=== PATIENT | male | born 1975 | race Caucasian/White ===

== ENCOUNTER 2016-07-17 12:42 | Emergency (ER) | payer MEDICARE, MEDICAID ==
--- NOTE | 2016-07-17 13:30 | EDM.PDOC ---
ED HPI Trauma - General Chief Complaint: Upper Extremity Injury/Pain Stated Complaint: FELL OFF HORSE Time Seen by Provider: 07/17/16 13:25 Source: Reports: Patient, RN notes reviewed History Limitations: Reports: No limitations - History of Present Illness INITIAL COMMENTS - FREE TEXT/NARRATIVE: 41-year-old gentleman presents to the emergency department today following a fall of his course, he landed on his buttocks and the outstretched left hand, he denies any head injury or loss of consciousness he is complaining of left wrist pain only Allergies/ADRs: Allergies No Known Allergies Allergy (Verified 07/17/16 13:07) Home Medications: Ambulatory Orders Albuterol [Ventolin HFA] 07/17/16 Amoxicillin/Potassium Clav [Amox-Clav 875-125 mg Tablet] 07/17/16 Aspirin 07/17/16 [Confirmed 07/17/16] Benztropine Mesylate 07/17/16 Budesonide/Formoterol [Symbicort 160-4.5 MCG] 07/17/16 Cetirizine [ZyrTEC] 07/17/16 Diclofenac Potassium [Cataflam] 07/17/16 Haloperidol [Haloperidol] 07/17/16 LORazepam [LORazepam] 07/17/16 Levothyroxine 07/17/16 Lovastatin [Mevacor] 07/17/16 Meclizine [Antivert] 07/17/16 Omeprazole 07/17/16 Prazosin HCl [Prazosin] 07/17/16 Propranolol HCl [Inderal Xl] 07/17/16 QUEtiapine Fumarate [Seroquel] 07/17/16 Sertraline [Zoloft] 07/17/16 Topiramate [Topiramate] 07/17/16 carBAMazepine [Epitol] 07/17/16 metFORMIN HCl [Fortamet] 07/17/16 Past Medical History HEENT History: Reports: Sinusitis Neurological History: Reports: Head trauma Endocrine/Metabolic History: Reports: Diabetes, type II, Hypoparathyroidism, Obesity/BMI 30+ - Past Surgical History HEENT Surgical History: Reports: Tonsillectomy GI Surgical History: Reports: Cholecystectomy Social & Family History - Tobacco Use Smoking Status *Q: Current Every Day Smoker Years of Tobacco use: 21 Packs/Tins Daily: 1.5 Review of Systems - Review of Systems Review Of Systems: See Below Respiratory: Reports: no symptoms Cardiovascular: Reports: no symptoms Musculoskeletal: Reports: joint pain (Left wrist) Trauma Exam - Physical Exam Exam: See Below Text/Narrative:: Examination of the left upper extremity there is no tenderness of the shoulder there is no tenderness at the elbow, mild edema is appreciated over the left wrist he has limited range of motion with flexion and extension he can make the okay sign and does have full range of motion of all digits radial pulses 2+ sensation is intact there are no skin Exam Limited By: No limitations General Appearance: Reports: alert, WD/WN, no apparent distress Respiratory Exam: Reports: no respiratory distress Course - Vital Signs Last Recorded V/S: Last Vital Signs Temp 98.4 F 07/17/16 13:24 Pulse 89 07/17/16 13:24 Resp 14 07/17/16 13:24 BP 143/84 H 07/17/16 13:24 Pulse Ox 95 07/17/16 13:24 - Orders/Labs/Meds Orders: Active Orders 24 hr Category Date Time Status Wrist Comp Min 3V Lt [CR] Stat Exams 07/17/16 13:27 Taken Meds: Medications Discontinued Medications Generic Name Dose Route Start Last Admin Trade Name Freq PRN Reason Stop Dose Admin Ketorolac Tromethamine 60 mg 07/17/16 14:16 07/17/16 14:19 Toradol IM 07/17/16 14:17 60 mg ONETIME ONE Administration Departure - Departure Time of Disposition: 15:16 Disposition: Home, Self-Care 01 Condition: good Clinical Impression: Radial fracture Qualifiers: Encounter type: initial encounter Radius location: distal Fracture type: closed Fracture morphology: other fracture Laterality: left Qualified Code(s): S52.592A - Other fractures of lower end of left radius, initial encounter for closed fracture Forms: ED Department Discharge Additional Instructions: Use Tylenol No. 3 as needed for pain control please follow up with orthopedic clinic on Tuesday at 10 AM - My Orders Last 24 Hours: My Active Orders 07/17/16 13:27 Wrist Comp Min 3V Lt [CR] Stat - Assessment/Plan Last 24 Hours: My Active Orders 07/17/16 13:27 Wrist Comp Min 3V Lt [CR] Stat Plan: Assessment Acuity = acute Site and laterality = distal fracture nondisplaced radius left closed Etiology = secondary to fall on outstretched hand Manifestations = pain Location of injury = home Lab values = x-ray describes a fracture above Plan Call discussed the case with Dr. Coleman he will see the patient in clinic on Tuesday at 10 AM placed in a volar splint Tylenol #3 for pain control Patient was in agreement with the plan all questions were answered, they were instructed to return to the emergency department or call for worsening symptoms. This note was dictated using [employer] voice recognition software please call with any questions.
[2016-07-17 14:04] VITALS: BP 143/84
[2016-07-17] MEDS ORDERED: Ketorolac 60 MG/2 ML SDV IM ONE (14:16)
--- NOTE | 2016-07-19 11:19 | CR ---
Lucency within the distal radius on the lateral view. Findings indicate nondisplaced fracture of the distal radius. Carpus is intact.
== END 2016-07-17 15:26 | disposition home or self-care (01) ==
LOC: JP.ED 12:42
DX: S52.592A Other fractures of lower end of left radius, initial encounter for closed fracture (principal); E11.9 Type 2 diabetes mellitus without complications; E66.9 Obesity, unspecified; Z98.890 Other specified postprocedural states; Z90.49 Acquired absence of other specified parts of digestive tract; F17.210 Nicotine dependence, cigarettes, uncomplicated; V80.010A Animal-rider injured by fall from or being thrown from horse in noncollision accident, initial encounter
CPT/HCPCS: 73110; 96372; 99284; J1885; 99283

== ENCOUNTER 2016-10-05 06:24 | Day surgery (SDC) | payer MEDICARE, MEDICAID ==
[2016-10-05] MEDS ORDERED: Bupivacaine 0.5% 30 ML SDV ONE (06:55)
[2016-10-05] MEDS ORDERED: Lactated Ringers 1,000 ML IV SCH (07:00)
[2016-10-05] MEDS ORDERED: Albuterol/Ipratropium 3.0-0.5 MG/3 ML Neb Soln NEB ONE (07:14)
[2016-10-05] MEDS ORDERED: Propofol 200 MG/20 ML SDV ONE (07:29)
[2016-10-05] MEDS ORDERED: Midazolam 1 MG/ML 2 ML SDV ONE (07:29)
[2016-10-05] MEDS ORDERED: fentaNYL 100 MCG/2 ML SDV ONE (07:29)
[2016-10-05] MEDS ORDERED: ceFAZolin 2 GM in Premix Bag 1 BAG IV ONE (07:30)
[2016-10-05] MEDS ORDERED: Lidocaine 0.5% 50 ML SDV ONE (07:31)
[2016-10-05] MEDS ORDERED: Povidone-Iodine 10% Soln 118.25 ML Bottle ONE (07:57)
[2016-10-05] MEDS ORDERED: Ketorolac 60 MG/2 ML SDV IM ONE (09:06)
[2016-10-05 09:14] VITALS: BP 126/77
--- NOTE | 2016-10-05 11:22 | OR ---
DATE OF PROCEDURE: 10/05/2016 PREOPERATIVE DIAGNOSIS: Right ring finger trigger finger. POSTOPERATIVE DIAGNOSIS: Right ring finger trigger finger. PROCEDURE: Right ring finger trigger finger release. ANESTHESIA: [place] block and conscious sedation. FLUID: Lactated Ringer solution. ESTIMATED BLOOD LOSS: Zero. COMPLICATIONS: None. SPECIMEN: None. DISCHARGE DISPOSITION: Stable to PACU. HISTORY AND INDICATION FOR THE PROCEDURE: The patient is well known to me. We treated him previously for another fracture. He was recently seen and was complaining of triggering of his ring finger, which has been going on for quite some time. Risks and benefits of the procedure were explained to the patient. Informed consent was obtained. DETAILS OF PROCEDURE: The patient was seen preoperatively by myself and the Anesthesia staff in the preoperative holding area, where the operative site was marked. He was brought to the operative suite by the Anesthesia staff where a [place] block was administered and conscious sedation. The right upper extremity was then prepped and draped in a sterile manner. Time-out was called identifying the correct patient, correct procedure, the correct site, and antibiotics had been with appropriate period of time. All extremities found to be well padded. The A1 gerry was palpated at the ring finger. An incision was made. The patient had very large hands, still we were able to do this through a 1 cm incision or less. Retraction was accomplished with a small self-retaining retractor as well as Weitlaner retractor and Ragnell retractors. The A1 gerry was identified and incised with a 15 blade. Some small bleeders were controlled with bipolar electrocautery. The A1 gerry was incised and inspected under direct visualization using Ragnell proximally and distally. The flexor tendons were then exteriorized using a Ragnell to ensure that there was no area that they were catching. After this had been performed, we copiously irrigated with saline and then closed with 3-0 nylon in a horizontal mattress fashion followed by sterile dressing. The patient had the Vicky block come down at that point in time, pre anesthesia and was taken to the PACU in stable condition. Farzad Coleman DO /[id number]
== END 2016-10-05 09:39 | disposition home or self-care (01) ==
LOC: JP.SDS 06:24
PROVIDERS: ATTEND Orthopaedic Surgery
PROC: 0LN70ZZ Release Right Hand Tendon, Open Approach (ICD-10-PCS; principal; 2016-10-05)
DX: M65.341 Trigger finger, right ring finger (principal); Z79.899 Other long term (current) drug therapy; E11.9 Type 2 diabetes mellitus without complications; E20.9 Hypoparathyroidism, unspecified
CPT/HCPCS: 26055; J0690; J1885; J2250; J2704; J3010; J7120; J7620